=== PATIENT | female | born 1975 | race Caucasian/White ===

== ENCOUNTER 2017-01-01 10:04 | Emergency (ER) | payer SELFPAY ==
[~2017-01-01] VITALS: Ht 162.6 cm; Wt 74.0 kg
[~2017-01-01 10:04] MED LIST: BLAC20TA PO; HYDR-3580 PO; LEVA750T PO; MULTTAB67 PO; ZYRT10TA PO
[2017-01-01 10:05] VITALS: BP 127/80; PULSE 84; RESP 16; TEMP 98.4; O2SAT 99
--- NOTE | 2017-01-01 10:20 | PD ---
HPI Chief Complaint: ENT Complaint Time Seen by Provider: 10:18 Travel History International Travel<30 days: No Contact w/Intl Traveler<30days: No Traveled to known affect area: No History of Present Illness HPI 41 yo F c/o sore throat and sensation of swelling. No dyspnea. onset gradual. timing constant. no fever. pain worse with swallowing though can swallow secretions. + tobacco. no cp. severity moderate. pt also c/o cough, occasionally productive. PFSH Past Medical History Arthritis: Yes (since 9 yrs old diagnosed) Asthma: Yes Bipolar Disorder: Yes (borderline personality disorder) Anxiety: Yes Depression: Yes Cancer: No Cardiovascular Problems: No Diminished Hearing: No Endocrine: Yes (tonsillectomy) Genitourinary: No Immune Disorder: No Implanted Vascular Access Dvce: No Musculoskeletal: Yes Neurologic: Yes Psychiatric: Yes (borderline personality disorder) Reproductive: Yes (ENDOMETRIOSIS) Respiratory: Yes (ASTHMA) Seizures: Yes (once a week) ?: Unknown LMP: 12-24-16 : 1 Para: 1 Past Surgical History Section: Yes Gynecologic Surgery: Yes (cesarea) Pacemaker: No Tonsillectomy: Yes Other Surgery: Yes (skin graft and surgery to left lower arm due to infection) Social History Alcohol Use: Yes (OCCASIONALLY) Tobacco Use: Yes (3 or 4 cigarettes ) Substance Use: No Allergies-Medications (Allergen,Severity, Reaction): Coded Allergies: amoxicillin (Unverified Allergy, Severe, Anaphylaxis, 01/01/17) cephalexin (Unverified Allergy, Severe, "ASTHMA ATTACK AND HOSPITALIZED", 01/01/17) penicillin G (Unverified Allergy, Severe, Anaphylaxis, 01/01/17) azithromycin (Unverified Allergy, Intermediate, VOMITING, 01/01/17) erythromycin base (Unverified Allergy, Intermediate, VOMITING, 01/01/17) Uncoded Allergies: ALL ANTIDEPRESANTS (Allergy, Severe, "SELF MUTILATION, SUICIDAL", 02/05/09) ALL CILLINS (Allergy, Severe, 08/23/10) Reported Meds & Prescriptions Reported Meds & Active Scripts Active Doxycycline Hyclate 100 Mg Cap 100 Mg PO BID 7 Days Proair Hfa 8.5 GM Inh (Albuterol Sulfate) 90 Mcg/Act Aer 2 Puff INH Q6H PRN 108 mcg/actuation Reported Multiple Vitamin 1 Tab 1 Tab PO DAILY Review of Systems Except as stated in HPI: all other systems reviewed are Neg General / Constitutional: No: Fever Physical Exam Narrative GENERAL: 41 yo F, WNWD, NAD SKIN: Warm and dry. HEAD: Atraumatic. Normocephalic. EYES: Pupils equal and round. No scleral icterus. No injection or drainage. ENT: No nasal bleeding or discharge. Mucous membranes pink and moist. Posterior oropharynx widely patient. Minimal erythema. s/p remote tonsillectomy. minimal white discoloration along lateral margins of anterior pharynx. No fluctuance/asymmetry or sign of abscess. NECK: Trachea midline. No JVD. No significant anterior neck adenopathy/TTP. CARDIOVASCULAR: Regular rate and rhythm. RESPIRATORY: No accessory muscle use. Clear to auscultation. Breath sounds equal bilaterally. GASTROINTESTINAL: Abdomen soft, non-tender, nondistended. Hepatic and splenic margins not palpable. MUSCULOSKELETAL: Extremities without clubbing, cyanosis, or edema. No obvious deformities. NEUROLOGICAL: Awake and alert. No obvious cranial nerve deficits. Motor grossly within normal limits. Five out of 5 muscle strength in the arms and legs. Normal speech. PSYCHIATRIC: Appropriate mood and affect; insight and judgment normal. Data Data Last Documented VS Vital Signs Date Time Temp Pulse Resp B/P (MAP) Pulse Ox O2 Delivery O2 Flow Rate FiO2 01/01/17 10:36 01/01/17 10:05 98.4 84 16 99 VS reviewed; BP 127/80 Orders Orders Al-Mag Hy-Si 40-40-4 Mg/Ml Liq (Mag-Al P (01/01/17 10:30) Lidocaine 2% Viscous (Xylocaine 2% Visco (01/01/17 10:30) MDM Medical Decision Making Medical Screen Exam Complete: Yes Emergency Medical Condition: Yes Medical Record Reviewed: Yes Differential Diagnosis strep pharyngitis, purification operator helper, rpa, thyroglossal duct cyst, pna, bronchitis, neoplasia Narrative Course Oropharynx largely unremarkable on exam Possible bacterial bronchitis or PNA given cough with phlegm > doxy ? cough variant asthma > albuterol Diagnosis Primary Impression: Pharyngitis, acute Qualified Codes: J02.9 - Acute pharyngitis, unspecified Additional Impressions: Hemoptysis Asthma, cough variant Referrals: [facility] 2 days Additional Instructions: You have a choice when it comes to health care, and we are glad that you chose [facility]. Hopefully, we have met your expectations on today's visit. You are welcome to return to [facility] at any time, as we are committed to meeting the health care needs of our community. Med/Other Pt SpecificInfo: Prescription(s) given Scripts Doxycycline Hyclate (Doxycycline Hyclate) 100 Mg Cap 100 MG PO BID for Infection for 7 Days, #14 CAP 0 Refills Prov: Scooter Ellis MD 01/01/17 Albuterol 8.5 GM Inh (Proair Hfa 8.5 GM Inh) 90 Mcg/Act Aer 2 PUFF INH Q6H Y for SHORTNESS OF BREATH, #1 INHALER 0 Refills 108 mcg/actuation Prov: Scooter Ellis MD 01/01/17 Disposition: 01 DISCHARGE HOME Condition: Stable Scooter Ellis MD Jan 01, 2017 10:20
[2017-01-01] MEDS ORDERED: ALBUAER3 INH (10:26)
[2017-01-01] MEDS ORDERED: DOXY100C PO (10:27)
[2017-01-01] MEDS ORDERED: ALUMINUM/MAGNESIUM/SIMETH 30 ML CUP PO ONE (10:30)
[2017-01-01] MEDS ORDERED: LIDOCAINE VISCOUS 2% SOLN 15 ML UDC PO ONE (10:30)
== END 2017-01-01 10:36 | disposition home or self-care (01) ==
LOC: NEPC 10:04
DX: J02.9 Acute pharyngitis, unspecified (principal); R04.2 Hemoptysis; J45.909 Unspecified asthma, uncomplicated; M19.90 Unspecified osteoarthritis, unspecified site
CPT/HCPCS: 99284

== ENCOUNTER 2017-03-04 05:24 | Emergency (ER) | payer SELFPAY ==
[~2017-03-04] VITALS: Ht 162.6 cm; Wt 75.0 kg
[~2017-03-04 05:24] MED LIST changes: +ALBUAER3 INH; -BLAC20TA PO; +DOXY100C PO; -HYDR-3580 PO; -LEVA750T PO; -ZYRT10TA PO
[2017-03-04 05:27] VITALS: BP 141/57; PULSE 105; RESP 20; TEMP 98.9; O2SAT 99
--- NOTE | 2017-03-04 06:02 | PD ---
HPI Chief Complaint: Cold / Flu Symptoms Time Seen by Provider: 05:37 Travel History International Travel<30 days: No Contact w/Intl Traveler<30days: No Traveled to known affect area: No History of Present Illness HPI Patient comes in with multiple complaints. Patient complaining of nonproductive cough, congestion, sinus pressure, sore throat, and just not feeling well. Patient reports this has been ongoing for 5 days. Patient tried using [id number] medicines with no relief of symptoms. Patient denies anything making it better. Patient feels like it's getting progressively worse. Patient denies any nausea, vomiting, diarrhea, fevers, abdominal pain, chest pain, or shortness of breath. Patient also has concerns over a lump on her left medial posterior thigh that began a Week ago. Patient has tried using [id number] antibiotic ointment along with iodine gauze with no improvement of symptoms. Patient describes pain as burning like in nature without radiation. Denies any drainage. States getting progressively worse. Patient also has concerns or what she believes might be a heat rash in her vaginal area. Patient states it itches at night and ernst during the day. Patient putting A+D Ointment on it with no improvement of symptoms. Denies anything making symptoms worse. PFSH Past Medical History Arthritis: Yes (since 9 yrs old diagnosed) Asthma: Yes Bipolar Disorder: Yes (borderline personality disorder) Anxiety: Yes Depression: Yes Cancer: No Cardiovascular Problems: No Diminished Hearing: No Endocrine: Yes (tonsillectomy) Gastrointestinal Disorders: No Genitourinary: No Immune Disorder: No Implanted Vascular Access Dvce: No Musculoskeletal: Yes Neurologic: Yes Psychiatric: Yes (borderline personality disorder) Reproductive: Yes (ENDOMETRIOSIS) Respiratory: Yes (ASTHMA) Immunizations Current: Yes Seizures: Yes (once a week) Tetanus Vaccination: < 5 Years Influenza Vaccination: No ?: Unknown LMP: 02/14/17 : 1 Para: 1 Past Surgical History Section: Yes Gynecologic Surgery: Yes (cesarea) Pacemaker: No Tonsillectomy: Yes Other Surgery: Yes (skin graft and surgery to left lower arm due to infection) Social History Alcohol Use: Yes (OCCASIONALLY) Tobacco Use: Yes (3 or 4 cigarettes ) Substance Use: No Allergies-Medications (Allergen,Severity, Reaction): Coded Allergies: amoxicillin (Verified Allergy, Severe, Anaphylaxis, 03/04/17) cephalexin (Verified Allergy, Severe, "ASTHMA ATTACK AND HOSPITALIZED", ) penicillin G (Verified Allergy, Severe, Anaphylaxis, 03/04/17) azithromycin (Verified Allergy, Intermediate, VOMITING, 03/04/17) erythromycin base (Verified Allergy, Intermediate, VOMITING, 03/04/17) Uncoded Allergies: ALL ANTIDEPRESANTS (Allergy, Severe, "SELF MUTILATION, SUICIDAL", 02/05/09) ALL CILLINS (Allergy, Severe, 08/23/10) Reported Meds & Prescriptions Reported Meds & Active Scripts Active Bactrim DS (Sulfamethoxazole-Trimethoprim) 800-160 Mg Tab 1 Tab PO BID Doxycycline Hyclate 100 Mg Cap 100 Mg PO BID 10 Days Proair Hfa 8.5 GM Inh (Albuterol Sulfate) 90 Mcg/Act Aer 2 Puff INH Q4-6H PRN 108 mcg/actuation Review of Systems Except as stated in HPI: all other systems reviewed are Neg Physical Exam Narrative GENERAL: Well-developed, overly nourished, in no acute distress, and non-ill appearing. SKIN: Small (approximately 1.5 cm in greatest diameter) erythematous area on the medial posterior aspect left thigh. There is no drainage, crepitus, or induration. He has minimal irritation noted bilateral inguinal area. There is no signs of yeast, gangrene, folliculitis, necrotizing fasciitis, herpes, or other infectious process. Exam was performed with presence of staff development nurse Dawn at all times. HEAD: Atraumatic. Normocephalic. EYES: Pupils equal and round. EOMI. No scleral icterus. No injection or drainage. ENT: No nasal bleeding or discharge. Mucous membranes pink and moist. Tympanic membranes pearly mitchell bilaterally. Posterior pharynx non-erythematous without exudate. Uvula is midline. No tenderness to the sinuses to palpation. NECK: Trachea midline. No cervical lymphadenopathy. Supple. No nuclear rigidity. CARDIOVASCULAR: Regular rate and rhythm. No murmur appreciated. RESPIRATORY: No accessory muscle use. No respiratory distress. Clear to auscultation. Breath sounds equal bilaterally. Dry cough on exam. MUSCULOSKELETAL: No obvious deformities. No clubbing. No cyanosis. No edema. Full range of motion. NEUROLOGICAL: Awake and alert. No obvious cranial nerve deficits. Motor grossly within normal limits. Normal speech. PSYCHIATRIC: Appropriate mood and affect; insight and judgment normal. Data Data Last Documented VS Vital Signs Date Time Temp Pulse Resp B/P (MAP) Pulse Ox O2 Delivery O2 Flow Rate FiO2 03/04/17 06:07 03/04/17 05:27 98.9 105 20 99 Room Air Orders Orders Ed Discharge Order (03/04/17 06:04) MDM Medical Decision Making Medical Screen Exam Complete: Yes Emergency Medical Condition: Yes Differential Diagnosis Sinusitis, viral syndrome, upper respiratory infection, asthma exacerbation, influenza, strep pharyngitis, viral pharyngitis, impetigo, cellulitis, abscess, yeast, gangrene, folliculitis Narrative Course Patients symptom complex of cough and congestion is consistent with viral URI. The patient is non-ill appearing and is in no respiratory distress and comfortable. The patient moves air well and oxygen saturations are normal. There is no clinical evidence to suggest pneumonia at this time. Plan of care and management were discussed with the patient who agreed with plan.The patient was instructed to follow up with their physician and instructed to return if worsens, progressively worsening shortness of breath or difficulty breathing, persistent fever, chest pains or discomfort, inability to keep medication or fluids down with or without vomiting, or as needed. The patient has cellulitis medial posterior left thigh. There is no evidence of necrotizing fasciitis at this time. There is no evidence of abscess. There is no evidence of local joint space involvement. There is no evidence of deep venous thrombosis. The patient will be discharged on antibiotics. The patient was given signs and symptoms warnings for worsening infection, such as spreading of redness, increasing pain, and/or swelling, associated heat, or fever and instructed to return immediately if these signs or symptoms worsen. The patient is to follow up with physician in 2 days for recheck or return here in 2 days for recheck if unable to establish outpatient follow up. Sooner if worsens or as needed. The patient agrees with plan. The patient presented with nonspecific rash/dermatitis bilateral groin/vaginal area. There were no blisters or bullae, target lesions, purpura or petechia, nor vesiculobullous or scarlatiniform lesions. The patient looks great and was non-ill appearing. There was no evidence to suggest scabies, cellulitis, folliculitis or abscess, Staph. Scalded Skin Syndrome, Toxic Shock, Toxic Epidermal necrolysis, Kawasakis, Measles, Rubella, cutaneous T cell lymphoma, Erythema Multiforme (minor or major). Plan of care was discussed with the patient and the patient is to follow up with their physician. The patient agreed with plan. Patient in no obvious distress upon re-evaluation. Patient was asked if they wanted to speak to my attending, which the patient did not wish to do at this time. Any questions/concerns in reference to patient diagnosis/condition discussed and clarified prior to patient's discharge. Reinforced sheer importance of close follow up with patient's primary physician or primary care clinic. Instructed patient to return to ED immediately, if symptoms return/ worsen. Patient showed understanding of above instructions. Further instructions and recommendations were detailed in discharge paperwork. Patient ambulated without difficulty out of ED at discharge. Diagnosis Primary Impression: Upper respiratory infection Qualified Codes: J06.9 - Acute upper respiratory infection, unspecified Additional Impressions: Cellulitis Qualified Codes: L03.116 - Cellulitis of left lower limb Rash Referrals: [facility] Patient Instructions: Acute Rash (ED), Cellulitis (ED), General Instructions, Upper Respiratory Infection (ED) Departure Forms: Work Release Enter return to work date: Mar 05, 2017 Additional Instructions: Follow-up with your primary care physician or return here in 2 days for recheck of cellulitis. Take all medication as prescribed. Return to the emergency department if symptoms get worse. Med/Other Pt SpecificInfo: Prescription(s) given Scripts Sulfamethoxazole-Trimethoprim (Bactrim DS) 800-160 Mg Tab 1 TAB PO BID for Infection, #20 TAB 0 Refills Prov: Beti Zhang MD 03/04/17 Doxycycline Hyclate (Doxycycline Hyclate) 100 Mg Cap 100 MG PO BID for Infection for 10 Days, #20 CAP 0 Refills Prov: Beti Zhang MD 03/04/17 Albuterol 8.5 GM Inh (Proair Hfa 8.5 GM Inh) 90 Mcg/Act Aer 2 PUFF INH Q4-6H Y for COUGH, #1 INHALER 0 Refills 108 mcg/actuation Prov: Beti Zhang MD 03/04/17 Disposition: 01 DISCHARGE HOME Condition: Stable Mahesh Mancia Mar 04, 2017 06:02
[2017-03-04] MEDS ORDERED: ALBUAER3 INH (06:04)
[2017-03-04] MEDS ORDERED: DOXY100C PO (06:04)
[2017-03-04] MEDS ORDERED: BACT800T5 PO (06:04)
== END 2017-03-04 06:07 | disposition home or self-care (01) ==
LOC: NEPD 05:24
DX: J06.9 Acute upper respiratory infection, unspecified (principal); L03.116 Cellulitis of left lower limb; R21 Rash and other nonspecific skin eruption; M19.90 Unspecified osteoarthritis, unspecified site; J45.909 Unspecified asthma, uncomplicated; F31.9 Bipolar disorder, unspecified; F41.9 Anxiety disorder, unspecified; F60.3 Borderline personality disorder; R56.9 Unspecified convulsions
CPT/HCPCS: 99284

== ENCOUNTER 2017-03-07 13:32 | Emergency (ER) | payer SELFPAY ==
[~2017-03-07 13:32] MED LIST changes: +BACT800T5 PO; -MULTTAB67 PO
[2017-03-07 13:35] VITALS: BP 139/76; PULSE 113; RESP 16; TEMP 98.5; O2SAT 100
--- NOTE | 2017-03-07 14:55 | PD ---
HPI . Wound to the left inner thigh Chief Complaint: Skin Problem Time Seen by Provider: 14:27 Travel History International Travel<30 days: No Contact w/Intl Traveler<30days: No Traveled to known affect area: No History of Present Illness HPI 42-year-old female presents emergency department for work note and evaluation of a small wound to her left upper inner thigh. Patient is currently taking Bactrim and doxycycline for a genital region rash that is mostly resolved at this time. Patient denies any fever, chills, malaise, shortness breath, nausea , vomiting, diarrhea. Patient's only major medical history is asthma. Patient is currently a pack-a-day smoker. PFSH Past Medical History Arthritis: Yes (since 9 yrs old diagnosed) Asthma: Yes Bipolar Disorder: Yes (borderline personality disorder) Anxiety: Yes Depression: Yes Cancer: No Cardiovascular Problems: No Diminished Hearing: No Endocrine: Yes (tonsillectomy) Gastrointestinal Disorders: No Genitourinary: No Immune Disorder: No Implanted Vascular Access Dvce: No Musculoskeletal: Yes Neurologic: Yes Psychiatric: Yes (borderline personality disorder) Reproductive: Yes (ENDOMETRIOSIS) Respiratory: Yes (ASTHMA) Immunizations Current: Yes Seizures: Yes (once a week) ?: Not : 1 Para: 1 Past Surgical History Section: Yes Gynecologic Surgery: Yes (cesarea) Pacemaker: No Tonsillectomy: Yes Other Surgery: Yes (skin graft and surgery to left lower arm due to infection) Social History Alcohol Use: Yes (OCCASIONALLY) Tobacco Use: Yes (3 or 4 cigarettes ) Substance Use: No Allergies-Medications (Allergen,Severity, Reaction): Coded Allergies: amoxicillin (Verified Allergy, Severe, Anaphylaxis, 03/04/17) cephalexin (Verified Allergy, Severe, "ASTHMA ATTACK AND HOSPITALIZED", ) penicillin G (Verified Allergy, Severe, Anaphylaxis, 03/04/17) azithromycin (Verified Allergy, Intermediate, VOMITING, 03/04/17) erythromycin base (Verified Allergy, Intermediate, VOMITING, 03/04/17) Uncoded Allergies: ALL ANTIDEPRESANTS (Allergy, Severe, "SELF MUTILATION, SUICIDAL", 02/05/09) ALL CILLINS (Allergy, Severe, 08/23/10) Reported Meds & Prescriptions Reported Meds & Active Scripts Active Bactrim DS (Sulfamethoxazole-Trimethoprim) 800-160 Mg Tab 1 Tab PO BID Doxycycline Hyclate 100 Mg Cap 100 Mg PO BID 10 Days Proair Hfa 8.5 GM Inh (Albuterol Sulfate) 90 Mcg/Act Aer 2 Puff INH Q4-6H PRN 108 mcg/actuation Review of Systems Except as stated in HPI: all other systems reviewed are Neg Physical Exam Narrative GENERAL: Well-nourished, well-developed 42-year-old female patient in no acute distress. Nontoxic appearing. SKIN: One centimeter in diameter superficial wound noted to the left inner upper thigh. No purulent drainage or signs of localized infection noted. Well approximated lesions with no purulent drainage noted on the lateral aspects of the labia majora. HEAD: Normocephalic. Atraumatic. EYES: No scleral icterus. No injection or drainage. NECK: Supple, trachea midline. No JVD or lymphadenopathy. CARDIOVASCULAR: Regular rate and rhythm without murmurs, gallops, or rubs. RESPIRATORY: Breath sounds equal bilaterally. No accessory muscle use. GASTROINTESTINAL: Abdomen soft, non-tender, nondistended. MUSCULOSKELETAL: No cyanosis, or edema. Data Data Last Documented VS Vital Signs Date Time Temp Pulse Resp B/P (MAP) Pulse Ox O2 Delivery O2 Flow Rate FiO2 03/07/17 13:35 98.5 113 16 139/76 (97) 100 Orders Orders Wound Culture And Gram Stain (03/07/17 14:36) Wound Care (03/07/17 14:36) MDM Medical Decision Making Medical Screen Exam Complete: Yes Emergency Medical Condition: Yes Differential Diagnosis Differential diagnoses include but not limited to wound, cellulitis, work note required Narrative Course 42-year-old female presents emergency department to obtain a work note and for evaluation of a wound to her left inner upper thigh. The wound is superficial in nature with no signs or symptoms of localized infection. Patient denies fever, chills, malaise. Patient is currently taking Bactrim and doxycycline as prescribed previously for rash to the genital region. Genital region rash is nearly completely resolved at this time. Wound culture obtained from the wound to the left inner thigh. Wound care performed. Patient discharged home with work note and instructions to return the emergency Department with any worsening condition but otherwise follow up with primary care. Diagnosis Primary Impression: Visit for wound check Referrals: Primary Care Physician Patient Instructions: Acute Wound Care (DC), General Instructions Departure Forms: Tests/Procedures, Work Release Enter return to work date: Mar 08, 2017 Additional Instructions: Please return to emergency department if your symptoms return or worsen. Follow up with your primary care provider. Keep wound clean and dry. Daily dressing change. Alternate Tylenol and ibuprofen as needed for pain or fevers. Disposition: 01 DISCHARGE HOME Condition: Stable Cathleen Stein Mar 07, 2017 14:55
== END 2017-03-07 15:10 | disposition home or self-care (01) ==
LOC: NEPK 13:32
DX: S70.922D Unspecified superficial injury of left thigh, subsequent encounter (principal); R21 Rash and other nonspecific skin eruption; Z72.0 Tobacco use; Z87.39 Personal history of other diseases of the musculoskeletal system and connective tissue; Z87.09 Personal history of other diseases of the respiratory system; Z86.59 Personal history of other mental and behavioral disorders; Z87.42 Personal history of other diseases of the female genital tract; X58.XXXD Exposure to other specified factors, subsequent encounter
CPT/HCPCS: 87070; 87205; 99283